=== PATIENT | female | born 1995 | race Caucasian/White ===

== ENCOUNTER 2020-03-13 00:57 | Day surgery (SDC) | payer OTHER, SELFPAY ==
[2020-03-12 16:34] VITALS: BMI 23.0
--- NOTE | 2020-03-13 07:56 | P.PNAN_ITS ---
Anes - Initial Pre Proc Eval Procedure: Operation Date: 03/13/20 09:30 Proposed Procedures p Suction Dilatation and Curettage - Flavio Hooper MD Date/Time: 03/13/20 07:56 Surgeon: Flavio Hooper MD Pre Op Diagnosis: missed AB Patient Data Age: 24 Gender: F Height: 1.83 m Weight: 77 kg Allergies Allergy/AdvReac Type Severity Reaction Status Date / Time No Known Allergies Allergy Unknown Unverified 12/02/18 14:08 Home Medications Medication Instructions Recorded Confirmed Type alprazolam 0.25 mg tablet 0.25 mg PO TID 01/05/19 03/12/20 History valacyclovir 500 mg tablet 500 mg PO DAILY 01/05/19 03/12/20 History Patient hx anesthesia problems: none Family hx anesthesia problems: none [facility] Past Medical History Medical History (Updated 01/05/19 @ 12:20 by Isela Álvarez, [facility]) Anxiety HSV (herpes simplex virus) infection Migraine Family History Family History (Updated 12/19/17 @ 14:25 by DOCTOR UNKNOWN) Father Family history of mental disorder Depression Social History Social History Smoking status: Never smoker Alcohol intake: never Living arrangements: with family Gender identity (if verbalized by the patient): Female Sexual Orientation (if Verbalized by the Patient): Straight or Heterosexual Spiritual care concerns: No Anes - Eval Final PreProcedure Day of Procedure 03/13/20 07:56 Patient weight: normal Heart: regular rate and rhythm Lungs: clear to auscultation and normal air movement Airway: Mallampati scale class II Neurological: alert and oriented Last oral intake: >/= 8 hours ASA classification: II Emergent: no Anesthetic plan: proceed Anesthesia type and monitoring: general GIVS Informed Consent: The patient's anesthetic plan and its attendant risks and benefits were discussed with the patient/family/POA. Questions were solicited and answers provided to the satisfaction of the patient/family/POA.
[2020-03-13 08:05] VITALS: BP 127/77; PULSE 93; RESP 18; TEMP 36.6; O2SAT 100
[2020-03-13] MEDS: ACETAMINOPHEN 500 MG TABLET 1000 MG PO (08:21)
[2020-03-13] MEDS: LACTATED RINGERS 1,000 ML 30 ML IV CONT ×2 (08:22→10:28)
--- NOTE | 2020-03-13 08:45 | WPDHPUPDATE1 ---
History and Physical Update Update Date/Time: 03/13/20 08:45 History and Physical has been reviewed, including an updated exam of the patient. There are NO changes in the patient's condition. Risks, benefits, and alternatives have been discussed and questions answered. Patient agrees to proceed with procedure.
--- NOTE | 2020-03-13 08:51 | SUR.PREOP ---
Dr. Obrien and Dr. Hooper aware patient has nose ring in right nare that is unable to be removed. She has signed removal waiver.
[2020-03-13 09:39] VITALS: BP 117/71; PULSE 70; RESP 16; O2SAT 100
--- NOTE | 2020-03-13 09:48 | P.OP_ITS ---
Procedure Note - Detailed Date of procedure: 03/13/20 Pre-op diagnosis: missed AB Post-op diagnosis: same Procedure performed: Suction D&C Description of procedure: The patient was taken the operating room. She has prepped and draped in dorsal lithotomy position after induction of mac anesthesia. A speculum was placed in the vagina. The cervix was grasped with a tenaculum. The cervix was injected at 3 and 9:00 a.m. with 1% lidocaine. The cervix was dilated up to 8 mm using Romo dilators. An 8 curved plastic suction curette was then applied to the intrauterine cavity. All of the surfaces in the intrauterine cavity were curettage under VAC. A sharp medium-size curette was then used to curettage all the surfaces to confirmed the removal of all the products conception. When all surfaces for bleed to be clean the curette was r emoved. The suction curette was then reapplied to remove all the debris. The procedure was terminated. The tenaculum was removed. The speculum was removed. The patient tolerated the procedure well. She was taken recovery room in stable condition. Anesthesia: MAC Surgeon: Flavio Hooper MD Estimated blood loss (mL): 100 Drains: No Packing: No Pathology: yes Complications: No immediate complications Condition: stable Disposition: PACU Findings: Normal vulva vagina and cervix. The moderate amounts of products conception. 10 cm uterus.
[2020-03-13 10:00] VITALS: BP 128/69; PULSE 82; RESP 16; O2SAT 100
[2020-03-13] MEDS: ONDANSETRON INJ 4 MG/2 ML VIAL IV PUSH (10:11)
[2020-03-13] MEDS: fentaNYL CITRATE INJ (*CRX) 100 MCG/2 ML VIAL 25 MCG IV PUSH ×2 (10:12→10:15)
[2020-03-13 10:30] VITALS: BP 119/68; PULSE 59; RESP 16; O2SAT 99
[2020-03-13] MEDS: oxyCODONE HCL (*CRX) 5 MG TAB IR PO (10:32)
--- NOTE | 2020-03-13 10:48 | SUR.PHASEII ---
1045 DR RIVERA AWARE OF BLOOD TYPE O NEGATIVE- RHOGAM ORDERED.
[2020-03-13 11:00] VITALS: BP 129/80; PULSE 63; RESP 16
[2020-03-13 11:30] VITALS: BP 114/67; PULSE 76; RESP 16
[2020-03-13] MEDS: RHO(D) IMMUNE GLOBULIN 300 MCG SYRINGE IM (11:38)
--- NOTE | 2020-03-13 11:46 | SUR.PHASEII ---
1100 TOI HUNG RN SPEAKING WITH PT.
== END 2020-03-13 11:50 | disposition home or self-care (01) ==
PROVIDERS: PCP Family Medicine; Visit Provider Obstetrics & Gynecology
PROC: (CPT 59820; principal; 2020-03-13 09:30)
DX: O02.1 Missed abortion (principal); F41.9 Anxiety disorder, unspecified; B00.9 Herpesviral infection, unspecified
CPT/HCPCS: 59820; 36415; 85461; 88305; 90384; A9270; J1100; J2250; J2405; J2790; J3010; J7120

== ENCOUNTER 2020-05-17 08:02 | Inpatient (IN) | payer OTHER, SELFPAY ==
[2020-05-17] VITALS (8 sets, daily range): BP systolic 132–151; BP diastolic 75–108; PULSE 62–88; RESP 16–18; TEMP 36.2–37.7; O2SAT 100
--- NOTE | 2020-05-17 08:29 | ECG_ITS ---
Measurements Intervals [place] Rate: 68 P: 62 VT: 148 QRS: 77 QRSD: 101 T: -7 QT: 405 QTc: 431 Interpretive Statements SINUS RHYTHM WITH SINUS ARRHYTHMIA NONCONDUCTED PREMATURE ATRIAL COMPLEX INCOMPLETE RIGHT BUNDLE BRANCH BLOCK DELAYED PRECORDIAL R/S TRANSITION BORDERLINE ST-T WAVE ABNORMALITY- INF/LAT LEADS BASELINE ARTIFACT- I, II, III, AVR, AVL, AVF, V3-V6 BORDERLINE ECG Electronically Signed On 05-17-2020 9:17:30 CDT by Noah White D.O.
[2020-05-17] MEDS: LACTATED RINGERS 1,000 ML 999 ML IV CONT (08:42)
[2020-05-17] MEDS: ONDANSETRON INJ 4 MG/2 ML VIAL IV PUSH ×4 (08:43→23:55)
[2020-05-17] MEDS: LORazepam INJ (*CRX) 2 MG/ML VIAL 1 MG IV PUSH (08:44)
--- NOTE | 2020-05-17 08:48 | ED.NAVMDI ---
HPI - Nausea/Vomiting/Diarrhea General Chief complaint: Nausea/Vomiting/Diarrhea Stated complaint: cyclic vomiting, now panic attack Time Seen by Provider: 05/17/20 08:18 Source: patient Mode of arrival: ambulatory Limitations: no limitations History of Present Illness HPI Narrative: This is a 24 year old female who presents for evaluation of anxiety and cyclic vomiting. She states she woke up on Tuesday with nausea, and this causes her anxiety to increase. She reports having nausea, vomiting and diarrhea since Tuesday, and this is due to her severe anxiety. She was evaluated at [facility] in [place], [place] 2 days and she reports her symptoms initially improved. She woke up this morning with severe anxiety with nausea and dry heaves , so she came for reevaluation. She takes Zoloft for anxiety and depression. She reports 2 episodes of diarrhea daily and she reports having blood stools 3 days ago. She denies abdominal pain, fever or chills. She reports sinus congest due to allergies. She also reports a mild cough that she thinks is due to allergies. MD elicited complaint: nausea, vomiting and diarrhea Related Data Home Medications Medication Instructions Recorded Confirmed valacyclovir 500 mg tablet 500 mg PO DAILY 01/05/19 05/17/20 sertraline [Zoloft] 100 mg PO DAILY 05/17/20 05/17/20 Allergies Allergy/AdvReac Type Severity Reaction Status Date / Time No Known Allergies Allergy Unknown Verified 05/17/20 16:17 Review of Systems Review of Systems: All systems reviewed & are unremarkable except as noted in HPI and below Constitutional: Constitutional: Denies chills and Denies fever(s) Cardiovascular: Cardiovascular: Denies chest pain Respiratory: Respiratory: Reports cough and Denies dyspnea Gastrointestinal: Gastrointestinal: Denies abdominal pain, Reports diarrhea, Reports nausea and Reports vomiting Genitourinary: Genitourinary: Denies dysuria Psychiatric: Psychiatric: Reports anxiety [facility] Past Medical History Medical History (Updated 05/17/20 @ 19:48 by Susie Granado MD) Anxiety Bipolar 2 disorder Chronic bilateral low back pain with bilateral sciatica Cyclic vomiting syndrome Generalized anxiety disorder HSV (herpes simplex virus) infection Migraine Personal history of traumatic brain injury Surgical History Surgical History (Updated 05/17/20 @ 08:49 by Susie Granado MD) No pertinent past surgical history Family History Family History Father Family history of mental disorder Depression Social History Social History Smoking status: Never smoker Alcohol intake: current Drinks per week: 4 Substance use: current Substance use type: marijuana Gender identity (if verbalized by the patient): Female Spiritual care concerns: No Exam Const: General: alert Orientation/consciousness: patient oriented x3 Eyes: EOM: EOMs intact bilaterally Resp: Effort & Inspection: normal respiratory effort and no retractions Auscultation: clear to auscultation bilaterally Cardio: Rate: regular rate Rhythm: regular rhythm Heart sounds: no murmurs GI: GI Palp: Yes Soft to palpation, No Tenderness to palpation present (GI) and No Guarding due to palpation present (GI) Auscultation: normal bowel sounds Neuro: General: patient oriented x3, moves all extremities and CN's II-XI intact bilaterally Psych: Mental Status: mental status grossly normal Affect: normal affect Course Reevaluation(s) Reevaluation #1: AFter multiple antiemetics and IVF patient still complains of nausea and vomiting. She is actively vomiting. She will be admitted for observation. I discussed case with Dr. Reyes who accepts patient for observation. Patient has no abdominal tenderness so no CT abdomen performed. I do not think this is surgical. Date: 05/17/20 Time: 13:00 Vital Signs Vital signs: Vital Signs Temperature 97.2 F L
[2020-05-17 09:14] LABS: Basophils Percent Auto 0.3 % (0.2-1.2); Eosinophils Absolute Auto 0.1 K/mm3 (0-0.3); Eosinophils Percent Auto 0.8 % (0-4.4); Hematocrit 35.8 % (37.0-47.0); Immature Granulocyte Absolute 0.03 K/mm3 (0.00-0.031); Immature Granulocyte Percent A 0.3 % (0-0.5); Lymphocytes Absolute Auto 1.48 K/mm3 (0.9-3.2); Lymphocytes Percent Auto 13.7 % (18.3-44.2); Mean Corpuscular HGB Conc 36.3 g/dl (32-36); Mean Corpuscular Hemoglobin 30.2 pg (26-34); Mean Corpuscular Volume 83.3 fl (80-100); Monocytes Absolute Auto 0.7 K/mm3 (0.1-0.6); Monocytes Percent Auto 6.2 % (2.6-8.5); Neutrophils Absolute Auto 8.5 K/mm3 (1.3-6.7); Neutrophils Percent Auto 78.7 % (45.5-73.1); Platelet Count Result 296 k/mm3 (150-375); Red Cell Distribution Width 11.8 % (11.5-14.5); White Blood Count 10.8 K/mm3 (4.5-10.0)
[2020-05-17] MEDS: HALOPERIDOL LACTATE 5 MG/ML VIAL IM (09:15)
[2020-05-17 09:23] LABS: Add Urine Microscopic? YES; Appearance Urine Clear (Clear); Bacteria Urine Trace /hpf; Bilirubin Urine Negative (Negative); Blood Urine 2+ (Negative); Color Urine Yellow (Yellow); Glucose Urine UA Negative (Negative); Ketones Urine Negative (Negative); Leukocyte Esterase Ur Negative LEU/UL (Negative); Mucus Urine Rare /lpf; Nitrate Urine Negative (Negative); Protein Urine Negative (Negative); RBC Urine 0-2 /hpf (0-2); Specific Grav Ur 1.012 (1.001-1.035); Squamous Epithelial Cell Urine Occasional /hpf (Few); Urobilinogen Urine Negative mg/dL (<2.0)
[2020-05-17 09:50] LABS: Alanine Aminotransferase 19 U/L (4-35); Albumin Level 4.7 g/dL (3.5-5.1); Alkaline Phosphatase 76 U/L (38-126); Anion Gap 10 mmol/L (8-16); Aspartate Amino Transferase 43 U/L (14-36); Bilirubin,Total 0.8 mg/dL (0.2-1.3); Blood Urea Nitrogen 11 mg/dL (7-17); Calcium 9.6 mg/dL (8.4-10.2); Carbon Dioxide 19 mmol/L (22-30); Chloride 110 mmol/L (98-107); Estimated CRCL calculation 109 ml/min; Estimated Glomerular Filt Rate > 60; Glucose 114 mg/dL (65-105); Lipase 66 U/L (23-300); Potassium 3.1 mmol/L (3.4-5.0); Sodium 139 mmol/L (137-145)
[2020-05-17] MEDS: SODIUM CHLORIDE 0.9% IV 50 ML 999 ML (10:12)
[2020-05-17] MEDS: PROMETHAZINE HCL 25 MG/ML AMPUL 12.5 MG IV PUSH (10:12)
[2020-05-17] MEDS: POTASSIUM CHLORIDE 20 MEQ TABLET 40 MEQ PO (11:19)
[2020-05-17] MEDS: diphenhydrAMINE HCl INJ 50 MG/ML VIAL 25 MG IV PUSH (12:45)
[2020-05-17] MEDS: METOCLOPRAMIDE HCL INJ 10 MG/2 ML VIAL IV PUSH (12:45)
[2020-05-17 14:19] LABS: Barbiturate Screen Urine Negative (Negative); Benzodiazepines Screen Urine Negative (Negative)
[2020-05-17 14:20] LABS: Amphetamine Screen Urine Negative (Negative); Cannabinoid Screen Urine Positive (Negative); Cocaine Screen Urine Negative (Negative); Methadone Screen Urine Negative (Negative); Opiate Screen Urine Negative (Negative); Phencyclidine Screen Urine Negative (Negative)
[2020-05-17] MEDS: LACTATED RINGERS 1,000 ML 125 ML IV CONT (15:33)
--- NOTE | 2020-05-17 16:17 | ADMGEN ---
This patient, Jessica Rocha, was admitted to 3 [facility] Surg Room 303-01. Report received from DULCE Bryson. Patient/family oriented to hospital policies and general routines including ID bracelet, bed and alarms, visiting hours, pain management, procedures, bathroom and other care routines, personal items, smoking policy, room service/diet, and visiting hours. Information on how to activate the Rapid Response Team has been discussed. Patient/Family are encouraged to report perceived risks to care and to ask questions if they do not understand what they are told or what they should do.
[2020-05-17] MEDS: LORazepam INJ (*CRX) 2 MG/ML VIAL 0.5 MG IV PUSH (19:44)
[2020-05-17] MEDS: FAMOTIDINE 20 MG/2 ML VIAL IV PUSH (19:44)
[2020-05-18] MEDS: LACTATED RINGERS 1,000 ML 125 ML IV CONT ×2 (01:12→22:31)
[2020-05-18] MEDS: diphenhydrAMINE HCl INJ 50 MG/ML VIAL 25 MG IV PUSH ×2 (01:35→19:48)
--- NOTE | 2020-05-18 02:17 | PM.IMHP ---
H&P: HPI History of Present Illness Date/Time: 05/18/20 02:17 this is a 25-year-old female patient who has a history of having gastritis, GERD, irritable bowel and cyclic vomiting. The patient stated that she used to smoke marijuana socially but has stopped using marijuana now. The patient has severe problems with anxiety and has been on Zoloft. The patient stated that she has had stomach problems since she was a little girl. She remembers them telling her that she has esophagitis. She has not seen a GI doctor in a long time. Complaints of anxiety and cyclic vomiting. She said she woke up Tuesday with nausea and caused her to be very anxious she said that she can feel the acid in the back of her throat. She has had nausea, vomiting, and diarrhea since Tuesday. And also the severe anxiety. She was evaluated at [facility] in [place] 2 days ago and had initially improved. She has about 2 episodes of diarrhea daily and she was having some bloody stools 3 days ago. No fever chills. She is not on any blood thinners. She said that she was given Zofran when she was discharged from [place] and that seemed to no longer help her. The patient recently had a miscarriage in March of this year. She said she is still grieving over the loss of her child. The patient was found to be positive for cannabinoids. Her potassium was 3.1 and it was supplemented from the emergency room. Her bedside test was negative., lactated Ringer's, Haldol, potassium, Phenergan, normal saline, and Benadryl in the emergency room. The patient is being admitted to observation on the date of service of 05/18/2020. Chief Complaint: Intractable nausea vomiting. Review of Systems Review of Systems: All systems reviewed & are unremarkable except as noted in HPI and below Constitutional: Constitutional: Reports as per HPI and Reports no additional constitutional complaints Eyes: Eyes: Reports as per HPI and Reports no additional eye complaints ENT: Reports system reviewed and no additional complaints, except as documented and Reports Normal hearing present Cardiovascular: Cardiovascular: Reports no additional cardiovascular complaints Respiratory: Respiratory: Reports no additional respiratory complaints and Reports no additional respiratory complaints Gastrointestinal: Gastrointestinal: Reports as per HPI and Reports no additional gastrointestinal complaints Musculoskeletal: Musculoskeletal: Reports no additional musculoskeletal complaints Integumentary/Breasts: Skin/Breast: Reports system reviewed and no additional complaints, except as docu and Reports as per HPI Neurologic: Reports system reviewed and no additional complaints, except as documented, Reports as per HPI and Reports Normal hearing present Psychiatric: Psychiatric: Reports no additional psychiatric complaints and Reports as per HPI Endocrine: Endocrine: Reports no additional endocrine complaints Hematologic/Lymphatic: Hematologic/Lymphatic: Reports no additional hematologic/lymphatic complaints Allergic/Immunologic: Allergic/Immunologic: Reports no additional allergic/immunologic complaints PMFSH Past Medical History Medical History (Updated 05/18/20 @ 02:35 by Joanna Mcintosh NP) ADHD Anxiety Chronic bilateral low back pain with bilateral sciatica Cyclic vomiting syndrome Generalized anxiety disorder HSV (herpes simplex virus) infection Migraine Personal history of traumatic brain injury Surgical History Surgical History (Updated 05/18/20 @ 02:24 by Joanna Mcintosh NP) H/O dilation and curettage H/O endoscopy Family History Family History Father Family history of mental disorder Depression Sibling Schizophrenia Mother Depression Social History Social History (Updated 05/18/20 @ 02:26 by Joanna Mcintosh NP) Social History: The patient told me that she does not use marijuana anymore she sees is socially rao
[2020-05-18] MEDS: METOCLOPRAMIDE HCL INJ 10 MG/2 ML VIAL 5 MG IV PUSH ×3 (05:30→16:46)
[2020-05-18] MEDS: LORazepam INJ (*CRX) 2 MG/ML VIAL 0.5 MG IV PUSH ×3 (05:34→19:48)
[2020-05-18 05:49] LABS: Basophils Percent Auto 0.5 % (0.2-1.2); Eosinophils Percent Auto 0.5 % (0-4.4); Hematocrit 34.5 % (37.0-47.0); Hemoglobin 11.9 g/dL (12.0-15.0); Immature Granulocyte Absolute 0.02 K/mm3 (0.00-0.031); Immature Granulocyte Percent A 0.3 % (0-0.5); Lymphocytes Absolute Auto 2.57 K/mm3 (0.9-3.2); Lymphocytes Percent Auto 33.1 % (18.3-44.2); Mean Corpuscular HGB Conc 34.5 g/dl (32-36); Mean Corpuscular Hemoglobin 29.5 pg (26-34); Mean Corpuscular Volume 85.6 fl (80-100); Mean Platelet Volume 9.6 fl (7.4-10.4); Monocytes Absolute Auto 0.7 K/mm3 (0.1-0.6); Monocytes Percent Auto 9.4 % (2.6-8.5); Neutrophils Absolute Auto 4.4 K/mm3 (1.3-6.7); Neutrophils Percent Auto 56.2 % (45.5-73.1); Platelet Count Result 264 k/mm3 (150-375); Red Blood Count 4.03 M/mm3 (4.2-5.4); Red Cell Distribution Width 11.6 % (11.5-14.5); White Blood Count 7.8 K/mm3 (4.5-10.0)
[2020-05-18 06:00] VITALS: BP 135/72; PULSE 56; RESP 16; TEMP 35.9; O2SAT 100
[2020-05-18 06:02] LABS: Alanine Aminotransferase 14 U/L (4-35); Albumin Level 4.3 g/dL (3.5-5.1); Alkaline Phosphatase 59 U/L (38-126); Anion Gap 7 mmol/L (8-16); Aspartate Amino Transferase 23 U/L (14-36); Bilirubin,Total 0.5 mg/dL (0.2-1.3); Blood Urea Nitrogen 9 mg/dL (7-17); Calcium 8.9 mg/dL (8.4-10.2); Carbon Dioxide 27 mmol/L (22-30); Chloride 104 mmol/L (98-107); Estimated CRCL calculation 122 ml/min; Estimated Glomerular Filt Rate > 60; Glucose 99 mg/dL (65-105); Potassium 3.2 mmol/L (3.4-5.0); Sodium 138 mmol/L (137-145)
[2020-05-18 07:00] LABS: Thyroid Stimulating Hormone Reflex 0.831 uIU/mL (0.465-4.68)
[2020-05-18] MEDS: FAMOTIDINE 20 MG/2 ML VIAL IV PUSH ×2 (08:22→19:47)
--- NOTE | 2020-05-18 10:47 | PM.IMPN ---
Progress Note: A&P Assessment and Plan (1) Intractable vomiting with nausea: Code(s): R11.2 - Nausea with vomiting, unspecified Status: Acute Assessment and Plan: Patient notes improvement in her symptoms today, particularly after IV KCl initiated. She associates her N/V with her anxiety. GI consulted and appreciate recommendations; possible plans for EGD/Colonoscopy tomorrow per patient Diet per GI Monitor electrolytes Advised against marijuana use and patient understanding and agreeable. Continue with Reglan Q6hr and Pepcid Q12hr Continue Benadryl Q4 hr PRN and ativan Q6hr PRN IV fluids for now (2) Cannabis use, unspecified, uncomplicated: Code(s): F12.90 - Cannabis use, unspecified, uncomplicated Status: Acute Assessment and Plan: Please see above a/p (3) Cyclical vomiting, not intractable: Code(s): R11.15 - Cyclical vomiting syndrome unrelated to migraine Status: Acute Assessment and Plan: Please see above a/p (4) Anxiety: Code(s): F41.9 - Anxiety disorder, unspecified Status: Chronic Assessment and Plan: Resume home meds when tolerating diet (5) HSV (herpes simplex virus) infection: Code(s): B00.9 - Herpesviral infection, unspecified Status: Chronic Assessment and Plan: Resume home meds when tolerating diet (6) Hypokalemia: Code(s): E87.6 - Hypokalemia Status: Acute Assessment and Plan: #.2 today; replaced with IV Monitor labs tomorrow; replace as needed Subjective Date/time seen: 05/18/20 10:47 Interval history: Patient is a 25 yo F with history of anxiety, cyclic vomiting, HSV who is seen in follow up for intractable N/V. Patient feels better today. Notes n/v improved after starting IV potassium. Minimal cramping associated with retching. She does not maroon blood in stool a few days ago associated with her diarrhea but has since resolved. Tells me Dr. Mistry plans for EGD/colonoscopy tomorrow. No other complaints at the moment. Denies f/c/s, dizziness, lightheadedness, current cp/palpitations, sob/cough, n/v/d/c, abd pain,dysuria, hematuria, cloudy urine, calf pain/swelling. She has no personal or family history of IBD. Review of Systems Review of Systems: All systems reviewed & are unremarkable except as noted in HPI and below Exam Narrative: Exam Narrative: General: Patient resting supine in bed in no acute distress. HEENT: Normocephalic, EOMI, oral mucosa moist. Cardiovascular: Rate and rhythm are regular. No notable murmur, rub, or gallop. Respiratory: Lungs clear to auscultation anterolateral lung gutierrez Non-labored breathing. Abdomen: Soft, ttp RLQ, non-distended, bowel sounds present. Extremities: Peripheral pulses intact. No edema. NTTP b/l calves Neuro: No focal neurological deficits. Speech is clear. Objective Data Vital Signs Vital Signs: Last Vital Signs Temp 96.7 F L 05/18/20 06:00 Pulse 56 L 05/18/20 06:00 Resp 16 05/18/20 06:00 BP 135/72 05/18/20 06:00 Pulse Ox 100 05/18/20 06:00 Intake/Output Intake/Output: Intake & Output 05/15/20 05/16/20 05/17/20 05/18/20 23:59 23:59 23:59 23:59 Intake Total 2050 Output Total 200 Balance 1850 Meds/Results Medications: Active Medications Generic Name Dose Route Start Last Admin Trade Name Freq PRN Reason Stop Dose Admin Diphenhydramine HCl 25 mg 05/18/20 02:15 Diphenhydramine Hcl Inj 50 Mg/Ml Vial IV PUSH Q4H PRN Itching Famotidine 20 mg 05/18/20 09:00 05/18/20 08:22 Famotidine 20 Mg/2 Ml Vial IV PUSH 20 mg Q12HR MAHESH Administration Lactated Ringer's 1,000 mls @ 125 mls/hr 05/17/20 14:25 05/18/20 08:15 Lr - Lactated R
--- NOTE | 2020-05-18 10:59 | WPDGICN ---
Assessment and Plan Assessment and plan (1) Intractable vomiting with nausea: Code(s): R11.2 - Nausea with vomiting, unspecified Status: Acute Assessment and Plan: patient should stop using marijuana and willing to try without it egd tomorrow to assess if ulcer, esophagitis or any other cause to explain ongoing daily nausea (2) Blood in stool: Code(s): K92.1 - Melena Status: Acute Assessment and Plan: patient is quite worried about it, described as kelly stool. Could be perianal but will investigate with colonoscopy (3) Cyclical vomiting, not intractable: Code(s): R11.15 - Cyclical vomiting syndrome unrelated to migraine Status: Acute Assessment and Plan: will start low dose of elavil as prophylaxis and then she can follow up in office antiemetics (4) Cannabis use, unspecified, uncomplicated: Code(s): F12.90 - Cannabis use, unspecified, uncomplicated Status: Acute Assessment and Plan: quit using (5) Hypokalemia: Code(s): E87.6 - Hypokalemia Status: Acute Assessment and Plan: treated (6) Anxiety: Code(s): F41.9 - Anxiety disorder, unspecified Status: Chronic GI Consult Note Consult date/time: 05/18/20 10:59 Reason for consult: cyclic vomiting, blood in stools HPI: Jessica Rocha is a 25 year old female with history of anxiety on zoloft, also daily marijuana smoker for long time last time she used about 1 week ago. She has daily nausea normally after waking up and sometimes will go in cycles with vomiting but she has not had to be in the hospital for almost 2 years until just few days ago when had more intractable nausea and vomiting, she went to another ER, given meds and sent home. Also 2-3 days ago noted stool mixed with blood. She says that had EGD when she was 9 years ago and apparently had gastritis, she took for some time prevacid but not longer using ppi. Never had a colonoscopy. She also says that whenever she has period of vomiting then will take hot showers. A doctor about 2 years ago told her that she has cyclic vomiting but not taking any med. She came here with n/v, admitted for dehydration and hypokalemia. Review of Systems Constitutional: Constitutional: Denies chills Eyes: Eyes: Denies blurry vision ENT: Reports Normal hearing present Cardiovascular: Cardiovascular: Denies chest pain Respiratory: Respiratory: Denies dyspnea Gastrointestinal: Gastrointestinal: Denies abdominal pain, Reports hematochezia, Reports nausea and Reports vomiting Genitourinary: Genitourinary: Denies hematuria Musculoskeletal: Musculoskeletal: Denies neck pain Integumentary/Breasts: Skin/Breast: Denies dry skin Neurologic: Denies headache(s) Psychiatric: Psychiatric: Reports anxiety PMFSH Past Medical History Medical History (Updated 05/18/20 @ 11:06 by Igor Kahn MD) ADHD Anxiety Blood in stool Chronic bilateral low back pain with bilateral sciatica Cyclic vomiting syndrome Generalized anxiety disorder HSV (herpes simplex virus) infection Migraine Nausea and vomiting in adult Personal history of traumatic brain injury Surgical History Surgical History (Updated 05/18/20 @ 02:24 by Joanna Mcintosh NP) H/O dilation and curettage H/O endoscopy Family History Family History Father Family history of mental disorder Depression Sibling Schizophrenia Mother Depression Social History Social History (Updated 05/18/20 @ 02:26 by Joanna Mcintosh NP) Social History: The patient told me that she does not use marijuana anymore she sees is socially however her drug screen was positive for marijuana. The patient has a fiancee. She is currently working on her degree in social sciences. 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 The patient has no children and recently had a miscarriage. She does not have a durable power deputy attorney general for
[2020-05-18 14:00] VITALS: BP 131/71; PULSE 53; RESP 16; TEMP 36.4; O2SAT 100
[2020-05-18 14:14] VITALS: PULSE 66; RESP 16; O2SAT 100
[2020-05-18] MEDS: polyethylene glycoL 3350 238 GM BOTTLE PO (17:17)
[2020-05-18] MEDS: BISACODYL 5 MG TABLET EC 20 MG PO (17:58)
[2020-05-18] MEDS: ONDANSETRON INJ 4 MG/2 ML VIAL IV PUSH (17:59)
--- NOTE | 2020-05-18 20:48 | PC.NURSE ---
patient not tolerating bowel prep gatorade very well, when doing 2100 med pass patient had just gotten out of the shower and was panicking, unable to catch breath etc, after talking to her for awhile she calmed down, but has been vomiting (no physical evidence) and retching when trying to take gatorade. At this time she has only taken one full bottle, I will continue to try and push her now that she has calmed down. -AEW RN
[2020-05-18 21:51] VITALS: BP 130/72; PULSE 82; RESP 18; TEMP 36.7; O2SAT 99
[2020-05-19] VITALS (8 sets, daily range): BP systolic 96–143; BP diastolic 47–79; PULSE 64–91; RESP 16–29; TEMP 36.4–37.3; O2SAT 97–100
[2020-05-19] MEDS: METOCLOPRAMIDE HCL INJ 10 MG/2 ML VIAL 5 MG IV PUSH ×4 (00:13→18:11)
--- NOTE | 2020-05-19 00:17 | PC.NURSE ---
at 00:00 patient has still only completed one full gatorade. She recieved reglan via IV and says she will try harder now... She stated she has not had a BM even with all the prep. -BONG CARDONA
--- NOTE | 2020-05-19 02:57 | PC.NURSE ---
Patient down to 1 bottle of gatorade with the majority of her miralax gone with absolutely no BM, will be starting the mag citrate earlier than scheduled in hopes of getting movement. Will call Dr if patient continues to not have any movement. -BONG RN
--- NOTE | 2020-05-19 03:07 | PC.NURSE ---
Per Joanna Mcintosh Dulcolax suppository ordered to help move patient along in bowel prep process. -AEW RN
[2020-05-19] MEDS: BISACODYL 10 MG SUPPOSITORY RECTAL (03:19)
[2020-05-19] MEDS: MAGNESIUM CITRATE 300 ML BTL PO (05:42)
[2020-05-19 06:29] LABS: Hematocrit 36.1 % (37.0-47.0); Mean Corpuscular Volume 83.4 fl (80-100); Mean Platelet Volume 10.1 fl (7.4-10.4); Platelet Count Result 342 k/mm3 (150-375); Red Blood Count 4.33 M/mm3 (4.2-5.4); Red Cell Distribution Width 11.6 % (11.5-14.5); White Blood Count 9.7 K/mm3 (4.5-10.0)
[2020-05-19 06:46] LABS: Anion Gap 12 mmol/L (8-16); Blood Urea Nitrogen 6 mg/dL (7-17); Calcium 9.4 mg/dL (8.4-10.2); Carbon Dioxide 22 mmol/L (22-30); Chloride 101 mmol/L (98-107); Estimated CRCL calculation 122 ml/min; Estimated Glomerular Filt Rate > 60; Glucose 101 mg/dL (65-105); Magnesium 1.8 mg/dL (1.6-2.3); Potassium 2.9 mmol/L (3.4-5.0); Sodium 135 mmol/L (137-145)
--- NOTE | 2020-05-19 08:19 | PM.IMPN ---
Progress Note: A&P Assessment and Plan (1) Intractable vomiting with nausea: Code(s): R11.2 - Nausea with vomiting, unspecified Status: Acute Assessment and Plan: Patient notes worsened symptoms after starting bowel prep. GI consulted and appreciate recommendations; plans for EGD/Colonoscopy today at 1500 Await findings from EGD/colonoscopy Diet per GI after scopes Monitor electrolytes; replace as needed Continue with Reglan Q6hr and Pepcid Q12hr Continue IV Benadryl Q4 hr PRN, Zofran Q6 hr prn and ativan Q6hr PRN Elavil started per GI yesterday IV fluids for now (2) Cannabis use, unspecified, uncomplicated: Code(s): F12.90 - Cannabis use, unspecified, uncomplicated Status: Acute Assessment and Plan: Please see above a/p (3) Cyclical vomiting, not intractable: Code(s): R11.15 - Cyclical vomiting syndrome unrelated to migraine Status: Acute Assessment and Plan: Please see above a/p (4) Anxiety: Code(s): F41.9 - Anxiety disorder, unspecified Status: Chronic Assessment and Plan: Resume home meds when tolerating diet (5) HSV (herpes simplex virus) infection: Code(s): B00.9 - Herpesviral infection, unspecified Status: Chronic Assessment and Plan: Resume home meds when tolerating diet (6) Hypokalemia: Code(s): E87.6 - Hypokalemia Status: Acute Assessment and Plan: 2.9 today 40 KCl IV now; repeat BMP/mag this afternoon Monitor labs tomorrow; replace as needed Subjective Date/time seen: 05/19/20 08:19 Interval history: Patient is a 25 yo F with history of anxiety, cyclic vomiting, HSV who is seen in follow up for intractable N/V. Patient is not feeling well today. She started having recurrent N/v and retching once she started her bowel prep for her colonoscopy. She got reglan this morning with little relief. Very upset and feels very weak. No blood/coffee ground emesis. No associated abdominal pain but notes that her esophagus is raw from vomiting. No other complaints at the moment. Denies f/c/s, current cp/palpitations, sob/cough, dysuria, hematuria, calf pain/swelling. Review of Systems Review of Systems: All systems reviewed & are unremarkable except as noted in HPI and below Exam Narrative: Exam Narrative: General: Patient sitting up in bed visibly upset and crying. Glove on right hand assuming due to her recurrent vomiting HEENT: Normocephalic, EOMI, oral mucosa moist. Cardiovascular: Rate and rhythm are regular. No notable murmur, rub, or gallop. Respiratory: Lungs clear to auscultation anterolateral lung gutierrez Non-labored breathing. Abdomen: Soft, diffuse mild ttp, non-distended, bowel sounds present. Extremities: Peripheral pulses intact. No edema. NTTP b/l calves Neuro: No focal neurological deficits. Speech is clear. Objective Data Vital Signs Vital Signs: Last Vital Signs Temp 97.8 F 05/19/20 06:00 Pulse 65 05/19/20 06:00 Resp 18 05/19/20 06:00 BP 138/70 05/19/20 06:00 Pulse Ox 97 05/19/20 06:00 Intake/Output Intake/Output: Intake & Output 05/16/20 05/17/20 05/18/20 05/19/20 23:59 23:59 23:59 23:59 Intake Total 2050 1250 250 Output Total 200 Balance 1850 1250 250 Meds/Results Medications: Active Medications Generic Name Dose Route Start Last Admin Trade Name Freq PRN Reason Stop Dose Admin Amitriptyline HCl 12.5 mg 05/18/20 21:00 05/18/20 19:48 Amitriptyline Hcl 12.5 Mg Tablet PO 12.5 mg HS MAHESH Administration Diphenhydramine HCl 25 mg 05/18/20 02:15 05/18/20 19:48 Diphenhydramine Hcl Inj 50 Mg/Ml Vial IV PUSH 25 mg Q4H PRN Administration Itching Famotidine 20 mg 05/18/20 09:00 0
[2020-05-19] MEDS: ONDANSETRON INJ 4 MG/2 ML VIAL IV PUSH ×3 (09:27→21:18)
[2020-05-19] MEDS: diphenhydrAMINE HCl INJ 50 MG/ML VIAL 25 MG IV PUSH ×3 (09:27→21:19)
[2020-05-19] MEDS: LACTATED RINGERS 1,000 ML 125 ML IV CONT (09:38)
[2020-05-19] MEDS: LACTATED RINGERS 1,000 ML 150 ML IV CONT (10:24)
--- NOTE | 2020-05-19 10:34 | WPDANESEPPF ---
Anes - Initial Pre Proc Eval Procedure: Operation Date: 05/19/20 15:00 Proposed Procedures p Esophagogastroduodenoscopy & Colonoscopy - Igor Kahn MD Date/Time: 05/19/20 10:34 Surgeon: Leighton Carroll PA-C Pre Op Diagnosis: intractable nausea and vomiting Patient Data Age: 25 Gender: F Height: 6 ft Weight: 72.5 kg Last Vital Signs Temp 98.3 F 05/19/20 10:13 Pulse 65 05/19/20 10:13 Resp 16 05/19/20 10:13 BP 143/77 H 05/19/20 10:13 Pulse Ox 100 05/19/20 10:13 Allergies Allergy/AdvReac Type Severity Reaction Status Date / Time No Known Allergies Allergy Unknown Verified 05/17/20 16:17 Home Medications Medication Instructions Recorded Confirmed Type valacyclovir 500 mg tablet 500 mg PO DAILY 01/05/19 05/17/20 History sertraline [Zoloft] 100 mg PO DAILY 05/17/20 05/17/20 History Laboratory Tests 05/19/20 05/19/20 05:35 05:35 WBC 9.7 K/mm3 K/mm3 (4.5-10.0) RBC 4.33 M/mm3 M/mm3 (4.2-5.4) Hgb 13.0 g/dL g/dL (12.0-15.0) Hct 36.1 % L % (37.0-47.0) MCV 83.4 fl fl (80-100) MCH 30.0 pg pg (26-34) MCHC 36.0 g/dl g/dl (32-36) RDW 11.6 % % (11.5-14.5) Plt Count 342 k/mm3 k/mm3 (150-375) MPV 10.1 fl fl (7.4-10.4) Sodium 135 mmol/L L mmol/L (137-145) Potassium 2.9 mmol/L L mmol/L (3.4-5.0) Chloride 101 mmol/L mmol/L (98-107) Carbon Dioxide 22 mmol/L mmol/L (22-30) Anion Gap 12 mmol/L mmol/L (8-16) BUN 6 mg/dL L mg/dL (7-17) Creatinine 0.70 mg/dL mg/dL (0.7-1.0) Estim Creat Clear Calc 122 ml/min ml/min Estimated GFR > 60 (59 - ) Glucose 101 mg/dL mg/dL (65-105) Calcium 9.4 mg/dL mg/dL (8.4-10.2) Magnesium 1.8 mg/dL mg/dL (1.6-2.3) Patient hx anesthesia problems: none Family hx anesthesia problems: none PMFSH Past Medical History Medical History (Updated 05/18/20 @ 11:06 by Igor Kahn MD) ADHD Anxiety Blood in stool Chronic bilateral low back pain with bilateral sciatica Cyclic vomiting syndrome Generalized anxiety disorder HSV (herpes simplex virus) infection Migraine Nausea and vomiting in adult Personal history of traumatic brain injury Surgical History Surgical History (Updated 05/18/20 @ 02:24 by Joanna Mcintosh NP) H/O dilation and curettage H/O endoscopy Family History Family History Father Family history of mental disorder Depression Sibling Schizophrenia Mother Depression Social History Social History (Updated 05/18/20 @ 02:26 by Joanna Mcintosh NP) Social History: The patient told me that she does not use marijuana anymore she sees is socially however her drug screen was positive for marijuana. The patient has a fiancee. She is currently working on her degree in social sciences. 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 The patient has no children and recently had a miscarriage. She does not have a durable power civil rights attorney for healthcare and she is a full code. She lives with her fiance. Smoking status: Never smoker Alcohol intake: current Drinks per week: 4 Substance use: current Substance use type: marijuana Gender identity (if verbalized by the patient): Female Spiritual care concerns: No Anes - Eval Final PreProcedure Day of Procedure 05/19/20 10:34 Patient weight: normal Heart: regular rate and rhythm Lungs: clear to auscultation Airway: Mallampati scale class II Neurological: alert and oriented Last oral intake: >/= 8 hours ASA classification: II Emergent: no Anesthetic plan: proceed Anesthesia type and monitoring: general GIVS and standard monitoring Informed Consent: The patient's anesthetic plan and its attendant risks and benefits were discussed with the patient/family/POA. Questions were solicited and answers provided to the satisfac
[2020-05-19] MEDS: diphenhydrAMINE HCl INJ 50 MG/ML VIAL 12.5 MG IV PUSH (12:32)
[2020-05-19] MEDS: FAMOTIDINE 20 MG/2 ML VIAL IV PUSH ×2 (12:32→21:18)
[2020-05-19 15:06] LABS: Anion Gap 12 mmol/L (8-16); Blood Urea Nitrogen 5 mg/dL (7-17); Calcium 9.4 mg/dL (8.4-10.2); Carbon Dioxide 22 mmol/L (22-30); Chloride 102 mmol/L (98-107); Estimated CRCL calculation 122 ml/min; Estimated Glomerular Filt Rate > 60; Glucose 107 mg/dL (65-105); Sodium 136 mmol/L (137-145)
[2020-05-19] MEDS: LORazepam INJ (*CRX) 2 MG/ML VIAL 0.5 MG IV PUSH (16:30)
--- NOTE | 2020-05-19 21:13 | PC.NURSE ---
patient running temp of 99F, called Joanna Mcintosh because patient had no fever reducers ordered. Put in order appropriately and will administer acetaminophen accordingly. -AEW RN
[2020-05-19] MEDS: ACETAMINOPHEN 325 MG TABLET 650 MG PO (21:18)
[2020-05-20] MEDS: LACTATED RINGERS 1,000 ML 125 ML IV CONT (05:34)
[2020-05-20] MEDS: LORazepam INJ (*CRX) 2 MG/ML VIAL 0.5 MG IV PUSH ×2 (05:35→13:43)
[2020-05-20] MEDS: METOCLOPRAMIDE HCL INJ 10 MG/2 ML VIAL 5 MG IV PUSH ×2 (05:35→11:28)
[2020-05-20 06:00] VITALS: BP 107/63; PULSE 81; RESP 20; TEMP 36.4; O2SAT 100
[2020-05-20] MEDS: diphenhydrAMINE HCl INJ 50 MG/ML VIAL 25 MG IV PUSH (06:03)
[2020-05-20 06:32] LABS: Hematocrit 41.8 % (37.0-47.0); Hemoglobin 14.4 g/dL (12.0-15.0); Mean Corpuscular HGB Conc 34.4 g/dl (32-36); Mean Corpuscular Hemoglobin 29.8 pg (26-34); Mean Corpuscular Volume 86.4 fl (80-100); Mean Platelet Volume 9.9 fl (7.4-10.4); Platelet Count Result 337 k/mm3 (150-375); Red Blood Count 4.84 M/mm3 (4.2-5.4); Red Cell Distribution Width 11.8 % (11.5-14.5); White Blood Count 7.8 K/mm3 (4.5-10.0)
[2020-05-20 06:44] LABS: Anion Gap 9 mmol/L (8-16); Blood Urea Nitrogen 7 mg/dL (7-17); Calcium 9.7 mg/dL (8.4-10.2); Carbon Dioxide 26 mmol/L (22-30); Chloride 103 mmol/L (98-107); Estimated CRCL calculation 108 ml/min; Estimated Glomerular Filt Rate > 60; Glucose 91 mg/dL (65-105); Magnesium 2.2 mg/dL (1.6-2.3); Potassium 3.8 mmol/L (3.4-5.0); Sodium 138 mmol/L (137-145)
[2020-05-20] MEDS: FAMOTIDINE 20 MG/2 ML VIAL IV PUSH (08:37)
--- NOTE | 2020-05-20 08:43 | WPDANESPN ---
Anes - Prog Note Post-Op Date/Time: 05/20/20 08:43 Cardiovascular status: normal Respiratory status: normal Airway patency: baseline Mental status: baseline Post-Op hydration status: normal Vital Signs: Last Vital Signs Temp 36.4 C 05/20/20 06:00 Pulse 81 05/20/20 06:00 Resp 20 05/20/20 06:00 BP 107/63 05/20/20 06:00 Pulse Ox 100 05/20/20 06:00 Pain Score (VAS): 02/16 I/O: Intake & Output 05/19/20 05/20/20 05/20/20 23:59 07:59 15:59 Intake Total 1000 Output Total 400 Balance 1000 -400 Laboratory Tests 05/20/20 05:45 05/20/20 05:45 05/19/20 05/20/20 05/20/20 14:16 05:45 05:45 WBC 7.8 RBC 4.84 Hgb 14.4 Hct 41.8 MCV 86.4 MCH 29.8 MCHC 34.4 RDW 11.8 Plt Count 337 MPV 9.9 Sodium 136 L 138 Potassium 3.0 L 3.8 Chloride 102 103 Carbon Dioxide 22 26 Anion Gap 12 9 BUN 5 L 7 Creatinine 0.70 0.80 Estim Creat Clear Calc 122 108 Estimated GFR > 60 > 60 Glucose 107 H 91 Calcium 9.4 9.7 Magnesium 2.0 2.2 Post-procedural complaints: none Patient Feedback: Patient satisfied with anesthetic care.
[2020-05-20 14:00] VITALS: BP 141/96; PULSE 90; RESP 16; TEMP 36.6; O2SAT 100
--- NOTE | 2020-05-20 14:05 | PM.DS ---
DS: Admitting Diagnosis Admitting Diagnosis Admitting Diagnosis: N/V DS: Discharge Diagnosis Discharge Diagnosis (1) Intractable vomiting with nausea: Code(s): R11.2 - Nausea with vomiting, unspecified Status: Acute Assessment and Plan: Patient has a history of anxiety, chronic nausea, IBS and has been using marijuana for a while. She has episodes similar to this when she tries to quit using marijuana in the past. Colonoscopy showed some internal hemorrhoids, otherwise no specific abnormality. No need to repeat colonoscopy until age 45 per current guidelines. EGD showed mild gastritis, pending biopsy results. Symptoms most likely related to cannabinoid hyperemesis syndrome, we can give her a trial of low-dose PPI continue antiemetics and quit cannabis. Also started the patient on Elavil as prophylaxis. Follow-up with Dr. Mistry as needed as an outpatient. Told patient to keep a food log. (2) Cannabis use, unspecified, uncomplicated: Code(s): F12.90 - Cannabis use, unspecified, uncomplicated Status: Acute Assessment and Plan: Please see above a/p (3) Cyclical vomiting, not intractable: Code(s): R11.15 - Cyclical vomiting syndrome unrelated to migraine Status: Acute Assessment and Plan: Please see above a/p (4) Anxiety: Code(s): F41.9 - Anxiety disorder, unspecified Status: Chronic Assessment and Plan: Resume home meds when tolerating diet (5) HSV (herpes simplex virus) infection: Code(s): B00.9 - Herpesviral infection, unspecified Status: Chronic Assessment and Plan: Resume home meds when tolerating diet (6) Hypokalemia: Code(s): E87.6 - Hypokalemia Status: Acute Assessment and Plan: Normal at 3.8. Normal magnesium level. Most likely due to nausea and vomiting. DS: Summary Hospital Course Reason for hospitalization: Patient has a history of anxiety, chronic nausea, IBS and has been using marijuana for a while. She has episodes similar to this when she tries to quit using marijuana in the past. Patient started having abdominal symptoms and nausea/vomiting for the last few days. She came into the ER for further evaluation since she was unable to keep anything down p.o.., not tachycardic, elevated blood pressure 151/91, oxygen saturation 100% on room air. Initial labs showed slight leukocytosis, most likely due to her nausea and vomiting. She was hypokalemic which was replenished. Slightly elevated AST most likely from vomiting. Normal lipase. No signs of UTI on labs. Urine tox was positive for cannabinoids. No imaging was completed. GI was consulted for further evaluation and monitoring. Colonoscopy showed some internal hemorrhoids, otherwise no specific abnormality. No need to repeat colonoscopy until age 45 per current guidelines. EGD showed mild gastritis, pending biopsy results. Symptoms most likely related to cannabinoid hyperemesis syndrome, we can give her a trial of low-dose PPI continue antiemetics and quit cannabis. Also started the patient on Elavil as prophylaxis. Follow-up with Dr. Mistry as needed as an outpatient. Told patient to keep a food log. The patient does have Zofran at home she can take for her nausea. Follow-up primary care provider for further evaluation. She understands agrees the plan all questions answered. Hospital Course: See above Status at Discharge Cognitive/behavioral status at discharge: Stable, improved. Time Spent with Patient Time attestation: Total time spent providing and/or coordinating discharge services: 41 Time spent: Greater than 30 minutes Exam Narrative: Exam Narrative: Gener
== END 2020-05-20 15:05 | disposition home or self-care (01) | DRG 392 ==
LOC: ANHED 14:51 → ANH3MEDSUR 15:14
PROVIDERS: Internal Medicine Gastroenterology; Nurse Practitioner; Physician Assistant; Admitting Provider Internal Medicine; Emergency Provider General Practice; PCP Family Medicine; Visit Provider Physician Assistant
PROC: 0DJ08ZZ Inspection of Upper Intestinal Tract, Via Natural or Artificial Opening Endoscopic (ICD-10-PCS; CPT 43235; principal; 2020-05-19 15:00)
DX: R11.2 Nausea with vomiting, unspecified (principal); K92.1 Melena; F12.90 Cannabis use, unspecified, uncomplicated; K29.70 Gastritis, unspecified, without bleeding; K64.8 Other hemorrhoids; R11.15 Cyclical vomiting syndrome unrelated to migraine; K58.9 Irritable bowel syndrome, unspecified; E87.6 Hypokalemia; F90.9 Attention-deficit hyperactivity disorder, unspecified type; F41.9 Anxiety disorder, unspecified; M54.42 Lumbago with sciatica, left side; M54.41 Lumbago with sciatica, right side; B00.9 Herpesviral infection, unspecified; G43.909 Migraine, unspecified, not intractable, without status migrainosus; Z79.899 Other long term (current) drug therapy
CPT/HCPCS: 36415; 80048; 80053; 80307; 81001; 81025; 83690; 83735; 84443; 85025; 85027; 88305; 93005; 96361; 96372; 96374; 96375; 96376; 99285; A9270; G0378; J1200; J1630; J2060; J2405; J2550; J2704; J2765; J3480; J7120

== ENCOUNTER 2021-02-03 14:03 | Emergency (ER) | payer OTHER, SELFPAY ==
[2021-02-03 15:18] VITALS: BP 125/74; PULSE 73; RESP 14; TEMP 37.3; O2SAT 100
--- NOTE | 2021-02-03 17:06 | ED.URI ---
HPI - URI/Sore Throat General Chief Complaint: Upper Respiratory Infection Stated Complaint: Cough/Chest Congestion Time Seen by Provider: 02/03/21 17:00 Source: patient, RN notes reviewed and old records reviewed Mode of arrival: ambulatory Limitations: no limitations History of Present Illness HPI Narrative: 25 year old female who presents to [facility] care with complaints of cough, sore throat, fevers, chills body aches, headaches, diarrhea since . Patient states that she has been taking Ibuprofen, Robitussin, and OTC cold medication. Tonsils are enlarged and sore but has been drinking fluids well and appetite has been fair. Patient has not had COVID or influenza vaccinations. Patient states that cough is dry, denies any shortness of breath or wheezing. MD elicited complaint: fever, cough, sore throat, nasal congestion and other (enlarged tonsils) Treatments prior to arrival: ibuprofen, cold medicine and other (Robitussin) Related Data Home Medications Medication Instructions Recorded Confirmed etonogestrel-ethinyl estradiol vag ring VAGINAL 02/03/21 02/03/21 [EluRyng] valacyclovir 500 mg PO DAILY 02/03/21 02/03/21 Allergies Allergy/AdvReac Type Severity Reaction Status Date / Time No Known Allergies Allergy Verified 02/03/21 15:37 Review of Systems Review of Systems: CONSTITUTIONAL: Positive for fever, chills, or sweats. EYES: Denies visual changes, redness, or discharge. ENT: Positive for rhinorrhea, congestion, sore throat, no otalgia. CARDIOVASCULAR: Denies chest pain, palpitations, or edema. RESPIRATORY:Positive for cough denies dyspnea. GASTROINTESTINAL: Denies abdominal pain, nausea, vomiting, episodes of diarrhea. GENITOURINARY: Denies dysuria or hematuria. SKIN: Denies rash or itching. MUSCULOSKELETAL: Denies back pain, joint pain, or myalgia. NEUROLOGIC: Positive for headache,no numbness, or weakness. PSYCHIATRIC: Denies anxiety or depression. All systems reviewed & are unremarkable except as noted in HPI and below PMFSH Past Medical History Medical History (Updated 02/05/21 @ 09:56 by Kirstin Strickland NP) Herpes genitalis History of IBS Surgical History Surgical History (Updated 02/05/21 @ 09:58 by Kirstin Strickland NP) No history of previous surgery Family History Family History (Updated 02/05/21 @ 09:59 by Kirstin Strickland NP) Other Family history non-contributory Social History Social History (Updated 02/05/21 @ 09:58 by Kirstin Strickland NP) Smoking status: Never smoker Alcohol intake: current Alcohol use details: social Substance use type: marijuana Living arrangements: with family Gender identity (if verbalized by the patient): Female Comments At time of signature, agree with nursing past medical, surgical, social and family history. There is no relevant family history pertinent to the presenting complaint Exam Narrative: GENERAL:ill-appearing, well-nourished, and in no acute distress. HEAD: Normocephalic, atraumatic. EYES: PERRLA and EOMI. ENT: Nares red with clear rhinorrhea no epistaxis. Mucous membranes moist.TM's normal with good light reflex, throat red with exudates red swollen tonsils. NECK: Supple. lymphadenopathy CHEST: Clear to auscultation. No respiratory distress. dry cough no tachypnea SAO2 100% on room air HEART: Regular rate and rhythm. No murmur heard. Normal peripheral pulses. ABDOMEN: Soft, nontender, nondistended, normal active bowel sounds. EXTREMITIES: Normal range of motion. No edema. SKIN: Warm, dry, no rash. NEURO: No focal deficits. Alert and oriented x3.headache discomfort with some feeling of lightheaded Course Vital Signs Vital signs: Vital Signs Temperature 37.3 C 02/03/21 15:18 Pulse Rate 73 02/03/21 15:18 Respiratory Rate 14 02/03/21 15:18 Blood Pressure 125/74 02/03/21 15:18 Pulse Oximetry 100 02/03/21 15:18 Temperature 37.3 C 02/03/21 15:18 Pulse Rate 73 02/03/21 15:18 Respi
== END 2021-02-03 17:19 | disposition home or self-care (01) ==
PROVIDERS: Emergency Provider Registered Nurse; PCP Family Medicine
DX: U07.1 COVID-19 (principal)
CPT/HCPCS: 87081; 87426; 87804; 87880; 99213; C9803; G0463